=== PATIENT | female | born 1990 | race Hispanic/Latino ===

== ENCOUNTER 2021-03-06 05:53 | Emergency (ER) | payer OTHER ==
[~2021-03-06] VITALS: Ht 157.5 cm; Wt 73.9 kg
--- OUTSIDE RECORDS SUMMARY | 2021-03-06 08:00 | XMS ---
PreManage Notification: LOURDES CHRISTY [employer] Events No recent Security Events currently on file CRITERIA MET - COVID-19 Positive Lab Results - [facility] - 2 Visits in 30 Days CARE PROVIDERS SONU RIOS [facility] Current PHONE: Unknown MALIHA AZEVEDO [facility] Current PHONE: [phone] Ceasar has no Care Guidelines for this patient. EJeannie VISIT COUNT (12 MO.) [address] [place] [address] TOTAL 5 NOTE: Visits indicate total known visits. ED/UCC VISIT TRACKING (12 MO.) 03/06/2021 05:54 [facility] [place] TYPE: Emergency COMPLAINT: - ABDOM PAIN, HEADACHE 03/05/2021 22:49 [facility] [place] TYPE: Emergency COMPLAINT: - ABD PAIN DIAGNOSES: - ABD PAIN 06/23/2020 03:40 [employer] [facility] [facility] [place] TYPE: Emergency DIAGNOSES: - ABDOMINAL PAIN - Alcohol use, unspecified with intoxication, uncomplicated 04/10/2020 11:47 [employer] [place] [facility] [place] TYPE: Emergency DIAGNOSES: - Nausea with vomiting, unspecified - Alcohol use, unspecified with intoxication, unspecified - +SCREENING/POSS ALCOHOL POSIONING VOMITING 03/23/2020 14:55 [facility] [place] TYPE: Emergency DIAGNOSES: - Other specified noninflammatory disorders of vagina - VAGINAL PROBLEMS INPATIENT VISIT TRACKING (12 MO.) No inpatient visits to display in this time frame [email or web address]
== END 2021-03-06 07:38 | disposition home or self-care (01) ==
LOC: ED 05:53
DX: R10.32 Left lower quadrant pain (principal)
CPT/HCPCS: 74022; 80053; 81001; 83690; 85025; 96374; 96375; 99284-25; J1170; J2405; J7030

== ENCOUNTER 2024-05-22 23:25 | Emergency (ER) | payer OTHER ==
[~2024-05-22] VITALS: Ht 157.5 cm; Wt 79.3 kg
[2024-05-23] MEDS ORDERED: LACTATED RINGER'S 1,000 ML IV ONE (00:15)
[2024-05-23] MEDS ORDERED: FAMOTIDINE 20 MG/ 2 ML VIAL IV ONE (00:15)
[2024-05-23] MEDS ORDERED: LIDOCAINE & ANTACID 35 ML BTL PO ONE (00:15)
[2024-05-23] MEDS ORDERED: KETOROLAC TROMETHAMINE 30 MG/ML VIAL IV ONE (00:15)
[2024-05-23 00:30] LABS: BASOPHILS 0.7 % (0-2); HEMATOCRIT 35.8 % (35.0-50.0); HEMOGLOBIN 11.8 g/dL (12.0-18.0); LYMPHOCYTES 25.6 % (24-44); MCH 27.5 (27-36); MCHC 32.9 g/dl (30-36); MCV 83.6 fl (81-99); MONOCYTES 5.4 % (0-12); NEUTROPHILS 68.3 % (39-80); PLATELET COUNT 260 K/uL (140-440); RBC 4.28 M/ul (4.3-5.7); RDW 14.8 (10.5-15.0)
[2024-05-23 00:45] LABS: ALBUMIN 3.7 g/dL (3.4-5.0); ANION GAP 13.9 (7-21); BILIRUBIN, TOTAL 0.3 ng/dL (0.2-1.0); BUN/CREATININE RATIO 16.17 (6.0-28.6); CALCIUM 8.6 mg/dL (8.5-10.1); CREATININE, SERUM 0.68 mg/dL (0.55-1.02); POTASSIUM 3.9 mmol/L (3.5-5.1); PROTEIN, TOTAL 7.4 g/dL (6.4-8.2)
[2024-05-23 02:10] LABS: BILIRUBIN, URINE NEGATIVE (negative); BLOOD/HGB, URINE NEGATIVE (Negative); KETONE, URINE NEGATIVE (Negative); LEUK ESTERASE, URINE NEGATIVE (negative); NITRITE, URINE NEGATIVE (negative); PH, URINE 8.5 (5-7)
[2024-05-23] MEDS ORDERED: CARAFATE1 GM/10 ML PO (02:19)
[2024-05-23] MEDS ORDERED: OMEPRAZOLE20 MG PO (02:19)
[2024-05-23] MEDS ORDERED: HYDROmorphone HCL 1 MG/ML SYR IV ONE (02:30)
[2024-05-23 02:35] LABS: AMPHETAMINES, URINE NEGATIVE (NEGATIVE); BARBITURATES, URINE NEGATIVE (NEGATIVE); BENZODIAZEPINE, URINE NEGATIVE (NEGATIVE); BUPRENORPHINE, URINE NEGATIVE (NEGATIVE); CANNABINOID, URINE POSITIVE (NEGATIVE); COCAINE, URINE NEGATIVE (NEGATIVE); ECSTASY, URINE NEGATIVE (NEGATIVE); FENTANYL, URINE NEGATIVE (NEGATIVE); METHADONE, URINE NEGATIVE (NEGATIVE); OPIATES, URINE NEGATIVE (NEGATIVE); OXYCODONE, URINE NEGATIVE (NEGATIVE); PHENCYCLIDINE, URINE NEGATIVE (NEGATIVE)
[2024-05-23 02:52] VITALS: BP 112/71
== END 2024-05-23 02:53 | disposition home or self-care (01) ==
LOC: ED 23:25
PROVIDERS: Internal Medicine
DX: K21.9 Gastro-esophageal reflux disease without esophagitis (principal)
CPT/HCPCS: 36415; 80053; 80307; 81003; 83690; 84703; 85025; 96361; 96374; 96375; 99284-25; J1885; J7121